=== PATIENT | female | born 1990 | race Caucasian/White ===

== ENCOUNTER 2017-04-17 12:42 | Emergency (ER) | payer OTHER ==
[2017-04-17 14:29] LABS: INFLUENZA A AMPLIFICATION NEGATIVE (NEGATIVE); INFLUENZA B AMPLIFICATION POSITIVE (NEGATIVE)
[2017-04-17 15:38] LABS: ANION GAP 9 MEQ/L (8-16); BLOOD UREA NITROGEN 5 MG/DL (7-18); C REACTIVE PROTEIN QUANTITATIV 3.24 MG/DL (0.00-0.30); CARBON DIOXIDE LEVEL 24 MEQ/L (21-32); CHLORIDE LEVEL 107 MEQ/L (98-107); CREATININE FOR GFR 0.59 MG/DL (0.55-1.30); GLOMERULAR FILTRATION RATE > 60.0 (>60); GLUCOSE, FASTING 89 MG/DL (70-100); HCG, SERUM QUANTITATIVE 61879 MIU/ML; POTASSIUM SERUM 3.6 MEQ/L (3.5-5.1); SODIUM LEVEL 140 MEQ/L (136-145)
[2017-04-17] MEDS: OSELTAMIVIR PHOSPHATE 75 MG CAP (TAMIFLU) PO (16:24)
== END 2017-04-17 16:31 | disposition home or self-care (01) ==
LOC: M ED 12:42
DX: O98.511 Other viral diseases complicating pregnancy, first trimester (principal); J10.1 Influenza due to other identified influenza virus with other respiratory manifestations; Z3A.12 12 weeks gestation of pregnancy
CPT/HCPCS: 71045

== ENCOUNTER 2017-10-31 15:08 | Inpatient (IN) | payer OTHER ==
[2017-10-31 16:52] LABS: MEAN CORPUSCULAR HGB CONC 33.3 g/dl (32.0-36.5); PLATELET COUNT, AUTOMATED 165 10^3/uL (150-450); RED BLOOD COUNT 4.23 10^6/uL (4.00-5.40); RED CELL DISTRIBUTION WIDTH 14.9 % (11.5-14.5); WHITE BLOOD COUNT 11.9 10^3/uL (4.0-10.0)
[2017-10-31 17:19] LABS: BASO % 0.2 % (0.0-1.0); EOS % 0.3 % (0.0-3.0); IMMATURE GRANULOCYTE % 0.7 % (0-3.0); LYMPH # 1.5 10^3/uL (1.5-6.5); LYMPH % 12.6 % (24.0-44.0); MONO # 0.7 10^3/uL (0.0-0.8); MONO % 6.1 % (0.0-5.0); NEUTROPHILS # 9.7 10^3/uL (1.8-7.7); NEUTROPHILS % 80.1 % (36.0-66.0)
[2017-10-31 17:20] LABS: IMMATURE GRANULOCYTE # 0.1 10^3/uL (0-0); PLATELET ESTIMATE NORMAL (NORMAL)
[2017-10-31] MEDS ORDERED: FENTANYL 2MCG/ML ROPIVACAINE 0.2% IN 0.9% NACL 200ML IVBAG As Ordered (17:37)
[2017-10-31] MEDS ORDERED: ePHEDrine SULFATE 25 MG/5 ML(5MG/ML) SYRINGE As Ordered (18:01)
[2017-10-31] MEDS ORDERED: EPIDURAL/PCA KEYS XX (18:15)
[2017-10-31] MEDS ORDERED: LACTATED RINGER'S 1000 ML IV (18:15)
[2017-10-31] MEDS ORDERED: diphenhydrAMINE INJ 50MG/ML VIAL (J1200) IV (18:15)
[2017-10-31] MEDS ORDERED: EPIDURAL COMMENT XX (18:15)
[2017-10-31] MEDS ORDERED: REFRIGERATOR IV KEYS XX (18:15)
[2017-10-31] MEDS ORDERED: NALOXONE INJ 0.4 MG/1 ML VIAL (J2310) IV (18:15)
[2017-10-31] MEDS: LACTATED RINGER'S 1000 ML IV (18:20)
[2017-10-31] MEDS: LR 1,000 ML IV (18:20)
[2017-10-31] MEDS: ePHEDrine SULFATE 25 MG/5 ML(5MG/ML) SYRINGE IV (18:21)
[2017-10-31 20:11] LABS: AMPHETAMINES URINE REFLEX NEGATIVE (NEGATIVE); BARBITURATES URINE REFLEX NEGATIVE (NEGATIVE); BENZODIAZEPINES URINE REFLEX NEGATIVE (NEGATIVE); CANNABINOIDS URINE REFLEX NEGATIVE (NEGATIVE); COCAINE METABOLITE URINE REFLE NEGATIVE (NEGATIVE); METHADONE URINE REFLEX NEGATIVE (NEGATIVE); OPIATES URINE REFLEX NEGATIVE (NEGATIVE); PHENCYCLIDINE URINE REFLEX NEGATIVE (NEGATIVE)
[2017-10-31] MEDS: OXYTOCIN DRIP 30 UNITS in APPROPRIATE DILUENT 1 EA IV (20:53)
[2017-10-31] MEDS: FENTANYL/ROPIVACAINE/NACL BAG 200 ML EPIDURAL (20:54)
[2017-10-31 21:08] LABS: HBsAg Prenatal NEGATIVE (NEGATIVE)
[2017-10-31] MEDS: ONDANSETRON 4MG/2ML VIAL (J2405) IV (21:11)
[2017-11-01 00:12] LABS: CHLAMYDIA DNA AMPLIFICATION NEGATIVE (NEGATIVE); GC DNA AMPLIFICATION NEGATIVE (NEGATIVE)
[2017-11-01] MEDS ORDERED: ACETAMINOPHEN 500 MG TAB PO (00:15)
[2017-11-01] MEDS ORDERED: METHYLERGONOVINE MALEATE 0.2 MG TAB PO (00:15)
[2017-11-01] MEDS ORDERED: MOM 30ML SUSPENSION UDC PO (00:15)
[2017-11-01] MEDS ORDERED: ANUSOL HC CREAM 30GM TOP (00:15)
[2017-11-01] MEDS: IBUPROFEN 800 MG TAB PO ×3 (01:00→19:20)
[2017-11-01] MEDS: PERCOCET 5MG/325MG TAB PO ×4 (04:12→19:21)
[2017-11-01] MEDS: PRENATAL VITAMINS CHEWABLE TABLET PO (07:23)
[2017-11-01 10:18] LABS: FETAL SCREEN PROF. 1 1
[2017-11-01] MEDS: MEASLES,MUMPS,RUBELLA VACCINE INJ (MMR-II) (90707) SC (10:27)
[2017-11-01] MEDS: RHOGAM 300 MCG (1500 IU) INJ (J2790) IM (13:26)
[2017-11-01 13:59] LABS: HEPATITIS C VIRUS ABY INDEX 0.1 INDEX (<0.8)
[2017-11-01 14:06] LABS: RUBELLA IgG QUALITATIVE EQUIVOCAL (IMMUNE)
[2017-11-01] MEDS: DOCUSATE SODIUM 100 MG CAP PO (19:22)
[2017-11-02] MEDS: PERCOCET 5MG/325MG TAB PO ×3 (00:20→10:09)
[2017-11-02] MEDS: IBUPROFEN 800 MG TAB PO (05:36)
[2017-11-02] MEDS: DIBUCAINE 1% OINTMENT 30GM TOP (07:49)
[2017-11-02] MEDS: PRENATAL VITAMINS CHEWABLE TABLET PO (07:49)
[2017-11-02] MEDS: MEASLES,MUMPS,RUBELLA VACCINE INJ (MMR-II) (90707) SC (09:06)
[2017-11-02 19:35] LABS: HIV 1&2 SCREEN CENTAUR NEGATIVE (NEGATIVE)
== END 2017-11-02 12:20 | disposition home or self-care (01) | DRG 775 ==
LOC: M LDO 15:08 → M OBS 11-01 01:49 → M LDI 15:56
PROC: 10E0XZZ Delivery of Products of Conception, External Approach (ICD-10-PCS; principal; 2017-10-31)
PROC: 10907ZC Drainage of Amniotic Fluid, Therapeutic from Products of Conception, Via Natural or Artificial Opening (ICD-10-PCS; 2017-10-31)
PROC: 0HQ9XZZ Repair Perineum Skin, External Approach (ICD-10-PCS; 2017-10-31)
PROC: 30233S1 Transfusion of Nonautologous Globulin into Peripheral Vein, Percutaneous Approach (ICD-10-PCS; 2017-11-01)
DX: O48.0 Post-term pregnancy (principal); O36.0130 Maternal care for anti-D [Rh] antibodies, third trimester, not applicable or unspecified; Z37.0 Single live birth; Z3A.40 40 weeks gestation of pregnancy; O77.0 Labor and delivery complicated by meconium in amniotic fluid; O69.81X0 Labor and delivery complicated by cord around neck, without compression, not applicable or unspecified; O70.0 First degree perineal laceration during delivery

== ENCOUNTER → 2018-03-04 | Outpatient (CLI) | payer OTHER ==
[~2018-03-04] MED LIST: COLA100C5 PO; DIBU1OIN TOP; HYDR50TA70 PO; IBUP80TA PO; MAPA500T2 PO; OSEL75CA PO; PREN200C PO
--- NOTE | 2018-03-04 14:54 | REP ---
Cervical spine series: Seven views. History: Neck pain. Findings: Lateral views done in flexion/extension and neutral position show straightening and some limitation of flexion/extension range of motion but no subluxation or instability. Vertebral body heights and disc spaces are maintained. Alignment is normal. Prevertebral soft tissues are not widened. The head is held tilted to the left somewhat on the AP view. There is a mild dextroconvex curve in the cervical spine as a result. Oblique images demonstrate intact neural foramina bilaterally and normally aligned facets. Impression: Straightening and some limitation of flexion/extension range of motion. Otherwise negative cervical spine radiographs. Electronically Signed by Costa Pham MD 03/04/2018 03:09 P
== END ==
LOC: M LRY 14:06
PROVIDERS: ATTEND Physician Assistant
DX: M54.2 Cervicalgia (principal)
CPT/HCPCS: 72052; 96372; G0463; J1885

== ENCOUNTER → 2021-05-20 | Outpatient (CLI) | payer OTHER ==
[~2021-05-20] MED LIST changes: +ALLE12TA31 PO; +BUSP10TA PO; +FERR32TA PO; +HEAL1TAB6 PO; +LORA-674 PO
[2021-05-20 15:41] LABS: BASO % 0.3 % (0.0-1.0); EOS # 0.2 10^3/uL (0.0-0.5); EOS % 4.2 % (0.0-3.0); HEMATOCRIT 35.9 % (36.0-47.0); HEMOGLOBIN 12.1 g/dl (12.0-15.5); LYMPH # 1.5 10^3/uL (1.5-5.0); LYMPH % 25.2 % (24.0-44.0); MEAN CORPUSCULAR HEMOGLOBIN 28.6 pg (27.0-33.0); MEAN CORPUSCULAR HGB CONC 33.7 g/dl (32.0-36.5); MEAN CORPUSCULAR VOLUME 84.9 fl (80.0-96.0); MONO # 0.4 10^3/uL (0.0-0.8); MONO % 6.6 % (2.0-8.0); NEUTROPHILS # 3.7 10^3/uL (1.5-8.5); NEUTROPHILS % 63.4 % (36.0-66.0); PLATELET COUNT, AUTOMATED 215 10^3/uL (150-450); RED BLOOD COUNT 4.23 10^6/uL (4.00-5.40); WHITE BLOOD COUNT 5.8 10^3/uL (4.0-10.0)
[2021-05-20 15:50] LABS: INR 0.96; PROTHROMBIN TIME 13.2 SECONDS (12.7-14.5)
== END ==
LOC: M LAB 14:44
PROVIDERS: ATTEND Physician Assistant
DX: J34.2 Deviated nasal septum (principal)

== ENCOUNTER → 2021-05-20 | Outpatient (CLI) | payer OTHER | LOC: M EKG 14:48 | PROVIDERS: ATTEND Anesthesiology | DX: Z01.818 Encounter for other preprocedural examination (principal); J34.2 Deviated nasal septum ==

== ENCOUNTER → 2021-05-21 | Outpatient (CLI) | payer OTHER | LOC: M LABSMTC 10:53 | PROVIDERS: ATTEND Anesthesiology | DX: Z01.818 Encounter for other preprocedural examination (principal); Z11.52 Encounter for screening for COVID-19 ==

== ENCOUNTER 2021-05-25 07:13 | Day surgery (SDC) | payer OTHER ==
[~2021-05-25] VITALS: Ht 170.2 cm; Wt 89.1 kg
[~2021-05-25 07:13] MED LIST changes: +LR 1,000 ML IV ONE
[2021-05-25] MEDS ORDERED: ONDANSETRON 4MG/2ML VIAL As Ordered ONE (08:11)
[2021-05-25] MEDS ORDERED: LIDOCAINE 2% 100MG/5ML SDV (FOR ANES.) As Ordered ONE (08:11)
[2021-05-25] MEDS ORDERED: dexameTHASONE 4 MG/ML 1ML VIAL (J1100 PER 1MG) As Ordered ONE (08:11)
[2021-05-25] MEDS ORDERED: MIDAZOLAM INJ 2MG/2ML VIAL (J2250 PER 1MG) As Ordered ONE (08:11)
[2021-05-25] MEDS ORDERED: fentaNYL 250 MCG/5 ML INJECTION As Ordered ONE (08:11)
[2021-05-25] MEDS ORDERED: propofoL 200 MG/20 ML VIAL As Ordered ONE ×2 (08:11→09:27)
[2021-05-25] MEDS ORDERED: ROCURONIUM BROMIDE 50 MG/5 ML VIAL As Ordered ONE (08:11)
[2021-05-25] MEDS ORDERED: LIDOCAINE 1% MDV 20ML VIAL As Ordered ONE (08:47)
[2021-05-25] MEDS ORDERED: OXYMETAZOLINE 0.05% NASAL SPRAY (AFRIN) As Ordered ONE (08:49)
[2021-05-25] MEDS ORDERED: ACETAMINOPHEN 1000MG 100ML IV BTL (OFIRMEV) (J0131 PER 10MG) As Ordered ONE (08:49)
[2021-05-25] MEDS ORDERED: COCAINE 4% 4ML NASAL SOLUTION BTL As Ordered ONE (09:06)
[2021-05-25] MEDS ORDERED: LIDOCAINE W/EPINEPHRINE 1% 20ML VIAL As Ordered ONE (09:11)
[2021-05-25] MEDS ORDERED: SUGAMMADEX SODIUM 500 MG/5 ML VIAL (BRIDION) As Ordered ONE (09:28)
[2021-05-25] MEDS ORDERED: oxyCODONE 5MG TAB PO PRN (10:40)
[2021-05-25] MEDS ORDERED: METOCLOPRAMIDE INJ 10MG/2ML VIAL (J2765 PER 1) IV PRN (10:40)
[2021-05-25] MEDS ORDERED: fentaNYL 100 MCG/2 ML INJECTION IV PRN (10:40)
[2021-05-25] MEDS ORDERED: ONDANSETRON 4MG/2ML VIAL IV PRN ×2 (10:40→10:45)
[2021-05-25] MEDS ORDERED: LR 1,000 ML IV SCH ×2 (10:40)
[2021-05-25] MEDS ORDERED: MORPHINE 2 MG/ML 1ML VIAL IV PRN (10:45)
[2021-05-25] MEDS ORDERED: ANEXSIA, NORCO 7.5MG/325MG TABLET(HYDROCODONE/APAP) PO PRN (10:45)
[2021-05-25] MEDS: HYDROMORPHONE HCL 0.5 MG/ 0.5 ML SYRINGE (J1170 PER 1) IV PRN ×2 (10:47→11:35)
[2021-05-25] MEDS ORDERED: OXYMETAZOLINE 0.05% NASAL SPRAY (AFRIN) PRN (11:25)
[2021-05-25 13:45] VITALS: BP 110/72
== END 2021-05-25 14:00 | disposition home or self-care (01) ==
LOC: M SDC 07:13
PROVIDERS: ATTEND Otolaryngology
DX: J34.2 Deviated nasal septum (principal); J34.3 Hypertrophy of nasal turbinates; D50.9 Iron deficiency anemia, unspecified; F33.9 Major depressive disorder, recurrent, unspecified; F41.9 Anxiety disorder, unspecified; G43.909 Migraine, unspecified, not intractable, without status migrainosus; R06.83 Snoring; Z79.899 Other long term (current) drug therapy; Z77.098 Contact with and (suspected) exposure to other hazardous, chiefly nonmedicinal, chemicals; F12.20 Cannabis dependence, uncomplicated
CPT/HCPCS: 30140; 30520; 81025; 88300; C9046; J0131; J1100; J1170; J2250; J2405; J2765; J3010